=== PATIENT | female | born 1985 | race Caucasian/White ===

== ENCOUNTER 2020-10-11 17:03 | Inpatient (IN) ==
[2020-10-11] MEDS ORDERED: Azithromycin 500 MG in 0.9 % Sodium Chloride 250 ML IVPB ONE (17:23)
[2020-10-11] MEDS ORDERED: Metoclopramide 10 MG/2 ML VIAL IVP PRN (17:23)
[2020-10-11] MEDS ORDERED: Famotidine 20 MG/2 ML VIAL IVP PRN (17:23)
[2020-10-11] MEDS ORDERED: Lidocaine 1% 20 ML MDV ID PRN (17:23)
[2020-10-11] MEDS ORDERED: *HR* Nalbuphine 10 MG/ML AMPUL IV PRN (17:23)
[2020-10-11] MEDS ORDERED: Naloxone 0.4 MG/ML INJ IVP PRN (17:23)
[2020-10-11] MEDS ORDERED: Ondansetron 4 MG/2 ML VIAL IVP PRN (17:23)
[2020-10-11] MEDS ORDERED: EPHEDrine 50 MG/ML VIAL IVP PRN (17:29)
[2020-10-11] MEDS ORDERED: Epidural Premix (fent/bupiv) 110 ML EP SCH (17:30)
[2020-10-11] MEDS ORDERED: Ringers Solution, Lactated 1,000 ML IVC ONE (17:32)
[2020-10-11 18:04] LABS: Basophils % 0.3 %; Eosinophils # 0.1 K/mcL (0.0-0.6); Eosinophils % 0.6 %; Hematocrit 36.5 % (35.3-44.9); Hemoglobin 12.2 g/dL (11.5-15.4); Immature Granulocytes % 0.4 % (0-4); Lymphocytes # 1.7 K/mcL (0.6-4.6); Lymphocytes % 16.6 %; Mean Corpuscular HGB Conc 33.4 g/dL (31.6-35.5); Mean Corpuscular Volume 89.7 fL (83.0-100.0); Mean Platelet Volume 12.8 fL (9.4-12.4); Monocytes # 0.8 K/mcL (0.0-1.3); Monocytes % 8.1 %; Neutrophils # 7.6 K/mcL (1.6-8.9); Platelet Count 194 K/mcL (140-400); Red Blood Count 4.07 M/mcL (3.82-4.97); Red Cell Distribution Width 12.7 % (11.5-14.5); White Blood Count 10.3 K/mcL (4.3-11.1)
[2020-10-11 18:30] LABS: Amphetamine Screen,Urine Negative ng/mL (Cutoff=1000); Barbiturate Screen,Urine Negative ng/mL (Cutoff=200); Benzodiazepines Screen,Urine Negative ng/mL (Cutoff=200); Cannabinoid Screen,Urine Negative ng/mL (Cutoff = 50); Cocaine Screen,Urine Negative ng/mL (Cutoff= 300); Opiate Screen,Urine Negative ng/mL (Cutoff=300); Phencyclidine Screen,Urine Negative ng/mL (Cutoff=25)
[2020-10-11 18:49] LABS: Adenovirus Not Detected (Not Detect); Bordetella Pertussis Not Detected (Not Detect); Chlamydophila pneumoniae Not Detected (Not Detect); Coronavirus 229E Not Detected (Not Detect); Coronavirus HKU1 Not Detected (Not Detect); Coronavirus NL63 Not Detected (Not Detect); Coronavirus OC43 Not Detected (Not Detect); Human Metapneumovirus Not Detected (Not Detect); Human Rhinovirus/Enterovirus Not Detected (Not Detect); Influenza A Subtype 2009 H1 Not Detected (Not Detect); Influenza B Not Detected (Not Detect); Mycoplasma pneumoniae Not Detected (Not Detect); Parainfluenza Virus 1 Not Detected (Not Detect); Parainfluenza Virus 2 Not Detected (Not Detect); Parainfluenza Virus 3 Not Detected (Not Detect); Parainfluenza Virus 4 Not Detected (Not Detect); Respiratory Syncytial Virus Not Detected (Not Detect); SARS-CoV-2 Not Detected (Not Detect)
[2020-10-12] MEDS ORDERED: *HR* FentaNYL (PF) 100 MCG/2 ML VIAL EP ONE (08:43)
[2020-10-12] MEDS ORDERED: EPHEDrine 50 MG/ML VIAL IVP PRN (08:43)
[2020-10-12] MEDS ORDERED: Ropivacaine/PF 0.2% 20 ML VIAL EP ONE (08:43)
[2020-10-12] MEDS ORDERED: Oxytocin 20 units/ LR 1000 mL 20 UNIT/1,000 ML BAG IVC SCH (08:45)
[2020-10-12] MEDS: Ringers Solution, Lactated 1,000 ML IVC SCH ×2 (09:03→13:01)
[2020-10-12] MEDS ORDERED: *HR* FentaNYL (PF) 100 MCG/2 ML VIAL ONE (13:04)
[2020-10-13] MEDS ORDERED: Benzocaine/Menthol 56 GM AEROSOL SPRAY TP PRN (00:24)
[2020-10-13] MEDS ORDERED: Lanolin 7 G OINT...G. TP PRN (00:24)
[2020-10-13] MEDS ORDERED: Acetaminophen 325 MG TABLET PO PRN (00:24)
[2020-10-13] MEDS: Ibuprofen 600 MG TABLET PO PRN ×2 (00:39→07:47)
[2020-10-13 16:36] VITALS: BP 112/79
== END 2020-10-13 18:48 | disposition home or self-care (01) | DRG 806 ==
LOC: 1NENULAB 17:03 → 1NENUOBS 10-12 21:30
PROVIDERS: ADMIT Obstetrics & Gynecology; ATTEND Obstetrics & Gynecology